=== PATIENT | male | born 1970 | race Caucasian/White ===

== ENCOUNTER 2018-12-06 06:49 | Emergency (ER) | payer SELFPAY ==
[~2018-12-06 06:49] MED LIST: AMOX-559 PO; AMOX500C7 PO; BACDS PO; CEP500 PO; CLI150 PO; HYDR-3250 PO; LOR5 PO; LOR5/325 PO; NO ROUTINE MEDS; No Rtn Meds; OXYC-865 PO; PEN250 PO
--- NOTE | 2018-12-06 07:11 | ER Report ---
History and Physical Time Seen By MD: 07:09 Hx. of Stated Complaint: 1 week coughing and this morning sputum was blood tinged HPI/ROS CHIEF COMPLAINT: Cough, hemoptysis HISTORY OF PRESENT ILLNESS: Patient is a 48-year-old male with no significant past medical history who presents emergency Department with 1 week of cough this morning the cough had a small amount of blood in it. He admits to some discomfort in the chest secondary to the coughing. He denies any headaches he denies any fevers but does admit to some chills and sweats. Patient did recently travel by car to [facility]. He denies any lower extremity pain or swelling. REVIEW OF SYSTEMS: Constitutional: Chills Eyes: No discharge. ENT: No sore throat. Cardiovascular: Chest discomfort, no palpitations Respiratory: Hemoptysis, cough Gastrointestinal: No abdominal pain, no vomiting. Genitourinary: No hematuria. Musculoskeletal: No back pain. Skin: No rashes. Neurological: No headache. Allergies: Coded Allergies: aspirin (Verified Allergy, Intermediate, THROAT SWELLING, 07/03/13) latex (Verified Allergy, Intermediate, RASH, 07/03/13) Uncoded Allergies: BEE STINGS (Allergy, Severe, THROAT SWELLS, 11/13/07) Home Meds Reported Medications Naproxen Sodium (ALEVE) 220 Mg Capsule, 220 MG PO TID, CAPSULE 12/06/18 Discontinued Reported Medications [No Rtn Meds] No Conflict Check 07/03/13 Past Medical/Surgical History Noncontributory towards this chief complaint Hx Smoking: Yes Smoking Status: Current: Every Day Smoker Hx Substance Use Disorder: No Hx Alcohol Use: Yes (2x week ) Constitutional Vital Sign - Last 24 Hours 12/06/18 12/06/18 06:55 07:20 Temp 97.8 Pulse 82 Resp 20 B/P (MAP) 115/87 Pulse Ox 85 O2 Delivery Room Air O2 Flow Rate 2.0 Physical Exam General/Constitutional: Patient is awake, alert, nontoxic and in no acute respiratory distress. Head: Normocephalic and atraumatic. Eyes: Conjunctival clear, Pupils are equal and reactive to light. Ears:External canals are clear. Tympanic membranes are clear with normal landmarks and light reflex. Nares: No rhinorrhea or bleeding. Turbinates are pink and moist. Oropharyngeal: Mucous membranes are moist. There is no pharyngeal erythema or exudate. There are no palatal petechiae. Uvula is midline and symmetrical. Neck: Supple, no adenopathy. Cardiovascular: Heart is regular rate and rhythm without audible murmurs, rubs or gallops. Pulmonary: Lungs are clear to auscultation bilaterally. There are no wheezes, rales, or rhonchi. Chest rise is symmetrical Abdomen: Soft, nontender, no guarding or peritoneal signs. Extremities: No gross deformities, No peripheral cyanosis. Able to move all 4 extremities. Neuro: Alert and oriented X3, Skin: No rashes, skin is warm dry and well perfused. Medical Decision Making Data Points Result Diagram: 12/06/18 0720 12/06/18 0720 Laboratory Hematology Test 12/06/18 07:10 12/06/18 07:20 Influenza Virus Type A (PCR) Negative (NEGATIVE) Influenza Virus Type B (PCR) Negative (NEGATIVE) Red Blood Count 5.69 M/uL (4.00-5.60) Mean Corpuscular Volume 94.2 fL (80.0-96.0) Mean Corpuscular Hemoglobin 31.9 pg (26.0-33.0) Mean Corpuscular Hemoglobin Concent 33.8 g/dL (32.0-36.0) Red Cell Distribution Width 14.3 % (11.5-14.5) Mean Platelet Volume 8.2 fL (7.2-11.1) Neutrophils (%) (Auto) 51.6 % (39.4-72.5) Lymphocytes (%) (Auto) 30.8 % (17.6-49.6) Monocytes (%) (Auto) 16.2 % (4.1-12.4) Eosinophils (%) (Auto) 1.0 % (0.4-6.7) Basophils (%) (Auto) 0.4 % (0.3-1.4) Nucleated RBC Relative Count (auto) 0.0 /100WBC Neutrophils # (Auto) 3.1 K/uL (2.0-7.4) Lymphocytes # (Auto) 1.9 K/uL (1.3-3.6) Monocytes # (Auto) 1.0 K/uL (0.3-1.0) Eosinophils # (Auto) 0.1 K/uL (0.0-0.5) Basophils # (Auto) 0.0 K/uL (0.0-0.1) Nucleated RBC Absolute Count (auto) 0.00 K/uL Prothrombin Time 14.8 seconds (12.0-14.4) Prothromb Time International Ratio 1.16 Activated Partial Thromboplast Time 35 seconds (23-35) Sodium Level 139 mmol/L (137-145) Potassium Level 3.7 mmol/L (3.5-5.0) Chloride Level 105 mmol/L (98-107) Carbon Dioxide Level 25 mmol/L (22-30) Blood Urea Nitrogen 9 mg/dl (9-21) Creatinine 0.70 mg/dl (0.66-1.25) Glomerular Filtration Rate Calc > 60.0 Random Glucose 118 mg/dl (75-110) Calcium Level 8.5 mg/dl (8.4-10.2) Total Bilirubin 0.5 mg/dl (0.2-1.3) Aspartate Amino Transf (AST/SGOT) 98 U/L (0-35) Alanine Aminotransferase (ALT/SGPT) 70 U/L (0-56) Alkaline Phosphatase 82 U/L (0-126) Troponin I 0.012 ng/ml B-Type Natriuretic Peptide 22 pg/ml (0-100) Total Protein 7.4 g/dl (6.3-8.2) Albumin 4.0 g/dl (3.5-5.0) Chemistry Test 12/06/18 07:10 12/06/18 07:20 Influenza Virus Type A (PCR) Negative (NEGATIVE) Influenza Virus Type B (PCR) Negative (NEGATIVE) White Blood Count 6.1 k/uL (4.5-11.0) Red Blood Count 5.69 M/uL (4.00-5.60) Hemoglobin 18.1 g/dL (14.0-18.0) Hematocrit 53.6 % (42.0-52.0) Mean Corpuscular Volume 94.2 fL (80.0-96.0) Mean Corpuscular Hemoglobin 31.9 pg (26.0-33.0) Mean Corpuscular Hemoglobin Concent 33.8 g/dL (32.0-36.0) Red Cell Distribution Width 14.3 % (11.5-14.5) Platelet Count 124 K/uL (150-450) Mean Platelet Volume 8.2 fL (7.2-11.1) Neutrophils (%) (Auto) 51.6 % (39.4-72.5) Lymphocytes (%) (Auto) 30.8 % (17.6-49.6) Monocytes (%) (Auto) 16.2 % (4.1-12.4) Eosinophils (%) (Auto) 1.0 % (0.4-6.7) Basophils (%) (Auto) 0.4 % (0.3-1.4) Nucleated RBC Relative Count (auto) 0.0 /100WBC Neutrophils # (Auto) 3.1 K/uL (2.0-7.4) Lymphocytes # (Auto) 1.9 K/uL (1.3-3.6) Monocytes # (Auto) 1.0 K/uL (0.3-1.0) Eosinophils # (Auto) 0.1 K/uL (0.0-0.5) Basophils # (Auto) 0.0 K/uL (0.0-0.1) Nucleated RBC Absolute Count (auto) 0.00 K/uL Prothrombin Time 14.8 seconds (12.0-14.4) Prothromb Time International Ratio 1.16 Activated Partial Thromboplast Time 35 seconds (23-35) Glomerular Filtration Rate Calc > 60.0 Calcium Level 8.5 mg/dl (8.4-10.2) Total Bilirubin 0.5 mg/dl (0.2-1.3) Aspartate Amino Transf (AST/SGOT) 98 U/L (0-35) Alanine Aminotransferase (ALT/SGPT) 70 U/L (0-56) Alkaline Phosphatase 82 U/L (0-126) Troponin I 0.012 ng/ml B-Type Natriuretic Peptide 22 pg/ml (0-100) Total Protein 7.4 g/dl (6.3-8.2) Albumin 4.0 g/dl (3.5-5.0) Coagulation Test 12/06/18 07:20 Prothrombin Time 14.8 seconds Prothromb Time International Ratio 1.16 Activated Partial Thromboplast Time 35 seconds EKG/Imaging EKG Interpretation EKG shows normal sinus rhythm with no significant ST segment or T-wave abnormalities. Monitor Interpretation: Normal Sinus Rhythm Imaging FACILITY: [facility] [place] PATIENT NAME: Teddy Martino : 1970 MR: [id number] V: [id number] EXAM DATE: ORDERING PHYSICIAN: ROBSON MONAHAN TECHNOLOGIST: Location[place] [facility] [place] Patient: Teddy Martino : 1970 Visit/Account:[id number] Date of Sevice: 12/06/2018 CT CTA CHEST W & W/O CON HISTORY: Hemoptysis and cough x1 week TECHNIQUE: CTA chest with intravenous contrast attention to pulmonary arteries. Sagittal, coronal and slab 3D MIP coronal reconstructed images were also created for further evaluation and interpretation. One of the following dose optimization techniques was utilized in the performance of this exam: Automated exposure control; adjustment of the mA and/or kV according to the patient's size; or use of an iterative reconstruction technique. Specific details can be referenced in the facility's radiology CT exam operational policy. CONTRAST: 75 mL Isovue-370. COMPARISON: None. FINDINGS: Heart/vessels: Satisfactory opacification of the pulmonary arteries without visualized pulmonary embolus. Otherwise negative. Mediastinum: Negative. Lymph nodes: Prominent subcarinal lymph node measuring approximately 26 x 17 mm (image 119 of series 4). Borderline prominent distal right paratracheal lymph node measuring up to 11 mm in short axis (image 105). Borderline prominent distal right paratracheal lymph node measuring up to 11 mm in short axis (image 89). Additional borderline prominent subcentimeter mediastinal/hilar lymph nodes. Lungs/pleura: 2 mm nodule within the right upper lobe abutting the minor fissure (image 131 of series 4), likely representing a perifissural lymph node. Mild/moderate bronchial wall thickening. Subtle nodular groundglass opacities within the superior aspect of the left lower lobe.. Visualized upper abdomen: Negative. Bones/soft tissues: Negative. IMPRESSION: 1. Negative for pulmonary embolus. 2. Subtle nodular groundglass opacities within the superior aspect of the left lower lobe. In addition, there is diffuse bronchial wall thickening. Findings are most compatible with an infectious/inflammatory process. 3. Borderline prominent mediastinal/hilar lymph nodes, likely reactive. Report Dictated By: Victorino Ledesma MD at 12/06/2018 7:58 AM Report E-Signed By: Victorino Ledesma MD at 12/06/2018 8:03 AM WSN:[id number] ED Course/Re-evaluation ED Course 12/06/2018 7:11:13 am plan at this time will be to check CBC CMP coags will also check influenza screen and CT of the chest for PE Decision to Disposition Date: Dec 06, 2018 Decision to Disposition Time: 08:25 Depart Departure Latest Vital Signs Vital Signs Date Time Temp Pulse Resp B/P (MAP) Pulse Ox O2 Delivery O2 Flow Rate FiO2 12/06/18 07:20 2.0 12/06/18 06:55 97.8 82 20 115/87 85 Room Air Impression: Primary Impression: Pneumonia Condition: Improved Disposition: HOME OR SELF-CARE New Scripts Azithromycin (ZITHROMAX) 250 Mg Tablet 1 TAB PO QDAY for 4 Days, #4 TAB 0 Refills next dose on 12/07/18 Prov: ROBSON MONAHAN MD 12/06/18 Patient Instructions: Community Acquired Pneumonia (ED) Problem Qualifiers Primary Impression: Pneumonia Pneumonia type: due to unspecified organism Laterality: left Lung location: lower lobe of lung Qualified Codes: J18.1 - Lobar pneumonia, unspecified organism ROBSON MONAHAN MD Dec 06, 2018 07:11
[2018-12-06] MEDS ORDERED: NAPR220C12 PO (07:23)
[2018-12-06] MEDS ORDERED: IOPAMIDOL 76% 150 ML INFUS BTL 150 ML ONE (07:27)
[2018-12-06] MEDS ORDERED: NS 0.9% 25 ML BAG 50 ML ONE (07:27)
--- NOTE | 2018-12-06 07:31 | EKG ---
[place] [facility] [place]: HOUSTON DAILEY : [id number] MR: [id number] V: [id number] EXAM DATE: ORDERING PHYSICIAN: ROBSON MONAHAN TECHNOLOGIST: Test Reason : CP Blood Pressure : / mmHG Vent. Rate : 069 BPM Atrial Rate : 069 BPM P-R Int : 148 ms QRS Dur : 088 ms QT Int : 422 ms P-R-T Axes : 017 023 054 degrees QTc Int : 452 ms Normal sinus rhythm Normal ECG Confirmed by ELEONORA HARP ([id number]) on 12/06/2018 10:33:20 AM Referred By: Confirmed By:ELEONORA HARP
[2018-12-06 07:34] LABS: PLATELET COUNT, AUTOMATED 124 K/uL (150-450)
[2018-12-06 07:40] LABS: INR 1.16
--- NOTE | 2018-12-06 08:06 | RADIOLOGY IMAGING REPORT ---
FACILITY: [facility] PATIENT NAME: Teddy Martino : 1970 MR: [id number] V: [id number] EXAM DATE: ORDERING PHYSICIAN: ROBSON MONAHAN TECHNOLOGIST: Location: [facility] Patient: Teddy Martino : 1970 Visit/Account:[id number] Date of Sevice: 12/06/2018 CT CTA CHEST W & W/O CON HISTORY: Hemoptysis and cough x1 week TECHNIQUE: CTA chest with intravenous contrast attention to pulmonary arteries. Sagittal, coronal a nd slab 3D MIP coronal reconstructed images were also created for further evaluation and interpretati on. One of the following dose optimization techniques was utilized in the performance of this exam: Autom ated exposure control; adjustment of the mA and/or kV according to the patient's size; or use of an i terative reconstruction technique. Specific details can be referenced in the facility's radiology CT exam operational policy. CONTRAST: 75 mL Isovue-370. COMPARISON: None. FINDINGS: Heart/vessels: Satisfactory opacification of the pulmonary arteries without visualized pulmonary emb olus. Otherwise negative. Mediastinum: Negative. Lymph nodes: Prominent subcarinal lymph node measuring approximately 26 x 17 mm (image 119 of series 4). Borderline prominent distal right paratracheal lymph node measuring up to 11 mm in short axis ( image 105). Borderline prominent distal right paratracheal lymph node measuring up to 11 mm in short axis (image 89). Additional borderline prominent subcentimeter mediastinal/hilar lymph nodes. Lungs/pleura: 2 mm nodule within the right upper lobe abutting the minor fissure (image 131 of serie s 4), likely representing a perifissural lymph node. Mild/moderate bronchial wall thickening. Subtl e nodular groundglass opacities within the superior aspect of the left lower lobe.. Visualized upper abdomen: Negative. Bones/soft tissues: Negative. IMPRESSION: 1. Negative for pulmonary embolus. 2. Subtle nodular groundglass opacities within the superior aspect of the left lower lobe. In addit ion, there is diffuse bronchial wall thickening. Findings are most compatible with an infectious/inf lammatory process. 3. Borderline prominent mediastinal/hilar lymph nodes, likely reactive. Report Dictated By: Victorino Ledesma MD at 12/06/2018 7:58 AM Report E-Signed By: Victorino Ledesma MD at 12/06/2018 8:03 AM WSN:[id number]
[2018-12-06] MEDS ORDERED: AZIT-1 PO (08:28)
[2018-12-06 08:30] VITALS: BP 113/73
[2018-12-06] MEDS ORDERED: AZITHROMYCIN 250 MG TAB PO ONE (08:30)
== END 2018-12-06 08:44 | disposition home or self-care (01) ==
LOC: ER 07:28
DX: J18.1 Lobar pneumonia, unspecified organism (principal)
CPT/HCPCS: 71275; 83880; 84484; 85025; 85610; 85730; 87502; 93005; 99284; Q0144; Q9967; 82040; 82247; 82310; 82374; 82435; 82565; 82947; 84075; 84132; 84155; 84295; 84450; 84460; 84520

== ENCOUNTER 2019-04-01 18:01 | Emergency (ER) | payer SELFPAY ==
[~2019-04-01 18:01] MED LIST changes: +AZIT-1 PO; +NAPR220C12 PO
[2019-04-01 18:06] VITALS: BP 123/86
--- NOTE | 2019-04-01 18:09 | ER Report ---
History and Physical Time Seen By MD: 18:06 Hx. of Stated Complaint: PT CUT LEFT POINTER FINGER WITH KNIFE HPI/ROS CHIEF COMPLAINT: Left index finger laceration HISTORY OF PRESENT ILLNESS: 48-year-old male patient presents to emergency room with complaint of left index finger laceration. 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 Patient denies any numbness tingling. He states that his last tetanus shot was approximately 10 years ago. He denies having any fevers, chills. Patient did apply pressure to the wound did not take any medication for this. Allergies: Coded Allergies: aspirin (Verified Allergy, Intermediate, THROAT SWELLING, 04/01/19) latex (Verified Allergy, Intermediate, RASH, 04/01/19) Uncoded Allergies: BEE STINGS (Allergy, Severe, THROAT SWELLS, 11/13/07) Home Meds Discontinued Reported Medications Naproxen Sodium (ALEVE) 220 Mg Capsule, 220 MG PO TID, CAPSULE 12/06/18 Discontinued Scripts Azithromycin (ZITHROMAX) 250 Mg Tablet, 1 TAB PO QDAY for 4 Days, #4 TAB 0 Refills next dose on 12/07/18 Prov:ROBSON MONAHAN MD 12/06/18 Past Medical/Surgical History Patient has a past medical history of alcohol use. Patient has no pertinent surgical history. Patient has a family medical history of diabetes. Reviewed Nurses Notes: Yes Hx Smoking: Yes Smoking Status: Current: Every Day Smoker Hx Substance Use Disorder: No Hx Alcohol Use: Yes (2x week ) Constitutional Vital Sign - Last 24 Hours 04/01/19 18:06 Temp 98.3 Pulse 81 Resp 18 B/P (MAP) 123/86 Pulse Ox 89 O2 Delivery Room Air Physical Exam General appearance: Alert no distress. Respiratory: Chest is non tender, lungs are clear to auscultation. Cardiac: Regular rate and rhythm. Skin: Patient has a 1.5 cm laceration to the palmar aspect of the left second finger. It does go into the subcutaneous tissue. Patient has good flexion extension of the finger. DIFFERENTIAL DIAGNOSIS: After history and physical exam differential diagnosis was considered for laceration. Medical Decision Making ED Course/Re-evaluation ED Course Patient was admitted to exam room. History and physical were obtained. Differential diagnoses were considered. I examination patient has a 1.5 cm laceration to the pad of the left second finger. Patient has good strength with flexion extension. Patient has no numbness tingling. We discussed anesthetizing the finger which patient refused. The finger was cleaned, repaired described below. Patient tolerated procedure well. We will go ahead and discharge him home at this time. He is follow-up with his primary care provider in 7-10 days and sutures removed. Patient is to monitor for signs of infection. Patient verbalized understanding and agreement with plan. Procedure: Laceration repair. Verbal consent was obtained from the patient. The 1.5 cm laceration on the left index finger was evaluated. The wound was scrubbed, draped and explored to its base with a gloved finger. There were no deep structures involved. No tendon injury was identified. The wound was repaired with 6 simple interrupted sutures using 5-0 Prolene material. The wound repair was simple. The procedure was performed by myself. Decision to Disposition Date: Apr 01, 2019 Decision to Disposition Time: 18:16 Depart Departure Latest Vital Signs Vital Signs Date Time Temp Pulse Resp B/P (MAP) Pulse Ox O2 Delivery O2 Flow Rate FiO2 04/01/19 18:06 98.3 81 18 123/86 89 Room Air Impression: Primary Impression: Finger laceration Condition: Improved Disposition: HOME OR SELF-CARE Patient Instructions: Finger Laceration (ED) Additional Instructions: Keep wound dry for 48 hours. Follow up with your primary care provider in the next 7-10 days to have sutures removed. Monitor for signs of infection; redness, swelling, heat, discharge, increasing pain or red streaking. Take Tylenol or Ibuprofen as needed for pain. Return to the ER with any concerns. You may change dressing as needed. Problem Qualifiers Primary Impression: Finger laceration Encounter type: initial encounter Finger: index finger Damage to nail status: without damage Foreign body presence: without foreign body Laterality: left Qualified Codes: S61.211A - Laceration without foreign body of left index finger without damage to nail, initial encounter MELCHOR ENCISO Apr 01, 2019 18:09
[2019-04-01] MEDS ORDERED: DIPHTH/TETANUS/ACEL. PERTUSSIS IM ONLY ONE (18:20)
== END 2019-04-01 18:45 | disposition home or self-care (01) ==
LOC: ER 18:13
DX: S61.211A Laceration without foreign body of left index finger without damage to nail, initial encounter (principal); W26.0XXA Contact with knife, initial encounter; Y93.G1 Activity, food preparation and clean up; Y92.511 Restaurant or cafe as the place of occurrence of the external cause; Y99.0 Civilian activity done for income or pay; Z23 Encounter for immunization
CPT/HCPCS: 90471; 90715; 99282